=== PATIENT | male | born 1945 ===

== ENCOUNTER → 2018-03-05 | Outpatient (CLI) | payer OTHER, BC ==
[~2018-03-05] VITALS: Ht 177.8 cm; Wt 85.7 kg
[~2018-03-05] MED LIST: ALEVE220 MG PO; ASPIR 8181 MG PO; FLOMAX0.4 MG PO
--- NOTE | ~2018-03-05 | P ---
[facility] [place] [address] PROCEDURE REPORT Name: NEOHERNANDEZ Jacinda Room #: REG [facility] [place]#: [id number] Admission: 03/05/18 Attend Phys: Alexander Alcaraz Discharge: Date of : 45 Report #: [id number] THIS REPORT FOR: //name// CC: Alexander Padgett DO DATE OF SERVICE: 03/05/2018 PROCEDURE PERFORMED: Colonoscopy with biopsies. HISTORY OF PRESENT ILLNESS: The patient is a 72-year-old male who presents today for routine screening colonoscopy. He denies any symptoms. No family history of colon cancer. PROCEDURE: The risks and benefits of the procedure were explained to the patient, those risks including, but not limited to bleeding, perforation, and the risk of sedation. He understood these risks and gave informed consent. Sedation was given using propofol per anesthesia. Next, a digital rectal exam was initially performed, which was normal other than enlarged prostate. Next, using a standard Olympus colonoscope, the scope was placed in the patient's anus and advanced under direct vision to the cecum. The overall prep was good. The cecum and ileocecal valve were normal in appearance. In the proximal ascending colon, a 5-mm sessile polyp was noted, this was removed with cold forceps, otherwise normal. The transverse and descending colon were normal. A few scattered diverticula were noted in the sigmoid colon, no evidence of inflammation, otherwise normal. The rectal mucosa was normal. On retroflexion, small nonbleeding internal hemorrhoids were noted, otherwise normal colonoscopy. The scope was then withdrawn and the procedure terminated. The patient tolerated the procedure well. IMPRESSION: 1. Ascending colon polyp. 2. Sigmoid diverticulosis. 3. Internal hemorrhoids. 4. Otherwise, normal colonoscopy. RECOMMENDATIONS: 1. Await biopsy results. 2. If polyp is hyperplastic, consider repeat colonoscopy in 10 years; if adenomatous polyp, repeat in [address] [address] PROCEDURE REPORT Name: NEOHERNANDEZ C Room #: REG [facility]#: [id number] Admission: 03/05/18 Attend Phys: Alexander Alcaraz Discharge: Date of : 45 Report #: [id number] Thank you for allowing me to participate in his care. <ELECTRONICALLY SIGNED> By: Alexander Mark MD 03/05/18 [id number] Alexander Mark MD /nt
== END | disposition home or self-care (01) ==
LOC: GI 07:18
DX: Z12.11 Encounter for screening for malignant neoplasm of colon (principal); D12.2 Benign neoplasm of ascending colon; K57.30 Diverticulosis of large intestine without perforation or abscess without bleeding; K64.8 Other hemorrhoids; N40.0 Benign prostatic hyperplasia without lower urinary tract symptoms; Z98.890 Other specified postprocedural states; Z79.82 Long term (current) use of aspirin; Z79.899 Other long term (current) drug therapy
CPT/HCPCS: 62110; 62900

== ENCOUNTER → 2019-12-18 | Outpatient (CLI) | payer OTHER | LOC: CAT 08:40 | DX: Z13.6 Encounter for screening for cardiovascular disorders (principal); E78.00 Pure hypercholesterolemia, unspecified; I25.10 Atherosclerotic heart disease of native coronary artery without angina pectoris ==